=== PATIENT | female | born 2000 | race Caucasian/White ===

== ENCOUNTER → 2020-09-17 | Outpatient (CLI) | payer OTHER ==
[~2020-09-17] MED LIST: DOSS PO; IBUPROFEN600 MG PO; NAPROXEN500 MG PO; PERCOCET 7.5-31 EACH PO; PRILOSEC OTC20 MG PO; ZOFRAN4 MG PO
== END ==
LOC: KOH-I 15:54
DX: M25.532 Pain in left wrist (principal)
CPT/HCPCS: 73100

== ENCOUNTER → 2021-06-29 | Outpatient (CLI) | payer OTHER | LOC: KOH-I 13:28 | DX: M54.50 Low back pain, unspecified (principal) | CPT/HCPCS: 72100 ==